=== PATIENT | female | born 1985 | race American Indian/Alaskan Native ===

== ENCOUNTER → 2016-09-16 | Outpatient (CLI) | payer OTHER | LOC: FIMAGING 10:43 | PROVIDERS: ATTEND Nurse Practitioner Women's Health | DX: Z03.89 Encounter for observation for other suspected diseases and conditions ruled out (principal) ==

== ENCOUNTER → 2016-09-23 | Outpatient (CLI) | payer OTHER | LOC: FIMAGING 12:29 | PROVIDERS: ATTEND Nurse Practitioner Women's Health | DX: N83.01 Follicular cyst of right ovary (principal) ==